=== PATIENT | female | born 1975 | race Caucasian/White ===

== ENCOUNTER 2017-07-28 07:23 | Outpatient (CLI) | payer BC ==
--- NOTE | 2017-07-28 12:13 | CT ---
CT OF THE ABDOMEN AND PELVIS WITHOUT IV CONTRAST: Date: 07/28/17 INDICATION: History of abdominal pain, gastric sleeve procedure, small bowel obstruction, and removal of the sple en, gallbladder, and tail of pancreas. TECHNIQUE: CT of the abdomen and pelvis without IV contrast, but with enteric contrast. COMPARISON: Recent CT examination dated 04/15/17, 08/30/13, and 02/15/08. FINDINGS: Lung bases are clear. There is postsurgical change of gastroplasty, partial pancreatectomy, and cholecystectomy. There is a hypodense mass within the segment 5 of right hepatic lobe measuring 3.1 cm. Adrenal glands appear within normal limits. The spleen is surgically absent. Unopacified kidneys are within normal limits. No enlarged lymph nodes or free fluid evident. There is a fibroid within the ut erus. The bladder, rectum, and perirectal soft tissues are unremarkable. The visualized small and lar ge bowel appear within normal limits. No acute osseous abnormality is evident. There is superior end plate compression abnormality of T11 w hich is stable. There are stable bilateral pars defects at L5. IMPRESSION: 1. New hypodense mass within the right hepatic lobe. Recommend further evaluation with CT of the abd omen utilizing a hemangioma protocol. Since this patient is allergic to IV contrast, preprocedure pily roid prep is recommended. 2. Stable postsurgical change. 3. No additional acute abnormality. POS: [facility]
== END 2017-07-28 07:24 | disposition home or self-care (01) ==
LOC: SCSCT 07:23
PROVIDERS: ATTEND Surgery
DX: R10.12 Left upper quadrant pain (principal); R16.0 Hepatomegaly, not elsewhere classified; Z98.890 Other specified postprocedural states; Z91.041 Radiographic dye allergy status
CPT/HCPCS: 74176

== ENCOUNTER 2017-08-29 13:21 | Outpatient (CLI) | payer BC ==
[~2017-08-29 13:21] MED LIST: Gadobenate Dimeglumine 529 MG/1 ML (20ML VIAL) ONE
--- NOTE | 2017-08-29 16:52 | MRI ---
MRI ABDOMEN WITH AND WITHOUT CONTRAST 08/29/16 HISTORY: Abnormal mass seen on CT examination. COMPARISON: CT 07/28/17. There are also multiple prior examinations from 04/15/17 and 08/30/13. FINDINGS: No significant hepatic steatosis. Hepatic segment is a 7 mm hemangioma. Corresponding to the CT examination is a 2.6 cm x 2.6 cm mass with arterial phase hyperenhancement as well as mild intrinsic T2 signal. This mass does have some signal dropout on the [id number] sequen ce peripherally. There is delayed central enhancement of the central scar which is small and the T2 s ignal can only be seen on the coronal sequence. There are bilateral adnexal cysts. No abnormal marrow signal within the spine. There has been prior gastric surgery along with cholecystectomy and partial pancreatectomy. Prior ventral hernia repair with large volume scar. IMPRESSION: 1. Corresponding to the recent CT finding is an arterial hyperenhancing mass measuring up to 2.6 cm with delayed enhancement of the central scar. There is also some peripheral fat and central scar which is T2 hyperintense on coronal sequence. All these findings are most suggestive of a focal nodul ar hyperplasia. Given this is a new finding, a Followup MRI abdomen in six months/one year is recomme nded. 2. Hepatic segment 7 mm hemangioma. 3. No other abnormality is seen of the liver. POS: [facility]
== END 2017-08-29 13:22 | disposition home or self-care (01) ==
LOC: MRI 13:21
PROVIDERS: ATTEND Surgery
DX: R16.0 Hepatomegaly, not elsewhere classified (principal); K76.89 Other specified diseases of liver; D18.09 Hemangioma of other sites
CPT/HCPCS: 74183; A9579

== ENCOUNTER 2017-11-07 10:56 | Day surgery (SDC) | payer BC ==
[2017-11-06 09:22] VITALS: BMI 36.7
--- NOTE | 2017-11-07 13:58 | OP ---
DATE OF PROCEDURE: 11/06/2017 TITLE PROCEDURE: Esophagogastroduodenoscopy with biopsy. PREPROCEDURE DIAGNOSES: 1. Intractable left upper quadrant abdominal pain. 2. History of sleeve gastrectomy in 03/2017. POSTPROCEDURE DIAGNOSES: 1. Examination to second portion of duodenum. 2. A 3-cm sliding hiatal hernia with mucosal changes of mild distal esophagitis , biopsied. 3. Luminal changes in the stomach consistent with prior sleeve gastrectomy. 4. Normal duodenum. 5. Mild patchy erythema in the gastric body and antrum, nonspecific, biopsied for CLOtest. 6. No evidence of gastric or duodenal ulcer. PROCEDURE IN DETAIL: Written informed consent was obtained. The patient was brought to the endoscopy suite. Total intravenous anesthesia was provided by Dr. Harinder Loco and associates. The patient was placed in the left lateral decubitus position. A bite block was inserted into the mouth. A Pentax video diagnostic gastroscope was introduced into the oral cavity and the esophagus was carefully intubated. The gastroscope was advanced under direct visualization to the second portion of the duodenum. Endoscopic findings revealed a sliding 3-cm hiatal hernia with the Z-line estimated at 33 cm from the incisors. A small erosion was noted along one fold of the distal esophagus and was biopsied. The Z-line was mildly irregular, and biopsies were obtained in the lower esophagus for histology. The stomach was entered and carefully examined. No retroflex exam was done due to her previous gastric surgery. Luminal changes were consistent with a prior sleeve gastrectomy. Mild patchy erythema was noted in the gastric body and antrum, nonspecific. Biopsies were obtained for CLOtest. The duodenum from the bulb to the second portion was then examined and appeared grossly normal. The stomach was decompressed as the endoscope was completely removed from the patient. She was transferred to the day stay surgery area for post-procedure monitoring. There were no immediate complications. RECOMMENDATIONS: 1. Await pathology results. 2. Ask the patient to call me in 1 week for pathology results. 3. Initiate Dexilant 60 mg daily for the next 6 weeks. 4. Follow up in GI clinic in 3-4 weeks. 5. Consider addition of an antispasmodic medication if the patient has no response to the trial of Dexilant. [facility]
[2017-11-07] MEDS ORDERED: Propofol 200 MG/20 ML VIAL ONE (14:37)
== END 2017-11-07 14:35 | disposition home or self-care (01) ==
LOC: SDC 10:56
PROVIDERS: ATTEND Internal Medicine Gastroenterology
PROC: 0DB38ZX Excision of Lower Esophagus, Via Natural or Artificial Opening Endoscopic, Diagnostic (ICD-10-PCS; principal; 2017-11-07)
DX: K22.10 Ulcer of esophagus without bleeding (principal); K44.9 Diaphragmatic hernia without obstruction or gangrene; K76.89 Other specified diseases of liver; I45.81 Long QT syndrome; E78.00 Pure hypercholesterolemia, unspecified; I10 Essential (primary) hypertension; G47.30 Sleep apnea, unspecified; J30.9 Allergic rhinitis, unspecified; Z87.891 Personal history of nicotine dependence; Z98.84 Bariatric surgery status; Z91.041 Radiographic dye allergy status; Z90.411 Acquired partial absence of pancreas; Z98.890 Other specified postprocedural states
CPT/HCPCS: 87081; 88305; 88312; 88313; J2704

== ENCOUNTER 2018-02-14 08:49 | Outpatient (CLI) | payer BC ==
--- NOTE | 2018-02-14 11:29 | ULT ---
THYROID ULTRASOUND: Indication: Enlarged thyroid. Correlation: CT neck, 09-14-12. That exam did reveal an enlarged heterogeneous thyroid with the left l obe being larger than the right with multiple areas of low attenuation and containing numerous thyroi d nodules in both lobes. FINDINGS: Both lobes are enlarged. Right lobe measures 5.7 x 2.2 x 2.6 cm and the left lobe measures 7.1 x 3.8 x 3.4 cm. There is a heterogenous nodule involving the inferior left lobe measuring 4.5 x 3.6 x 4.2 cm. Complex nodule in the isthmus measures 2.3 x 1.4 x 2.1 cm. Complex nodule in the inferior right lobe measures 4.4 x 1.8 x 2.0 cm. Two small nodules in the mid to upper lobe measure approximately 1.0 cm. IMPRESSION: Both lobes of the thyroid enlarged and very heterogenous. The complex nodules involving the inferior aspect of both lobes. Thyroid enlargement with heterogeneity also noted on the CT scan from 2012. POS: [facility]
== END 2018-02-14 08:50 | disposition home or self-care (01) ==
LOC: SCSULT 08:49
PROVIDERS: ATTEND Physician Assistant
DX: E04.9 Nontoxic goiter, unspecified (principal); E04.2 Nontoxic multinodular goiter
CPT/HCPCS: 76536

== ENCOUNTER 2018-02-23 09:47 | Day surgery (SDC) | payer BC, OTHER ==
[2018-02-22 14:16] VITALS: BMI 33.2
[2018-02-23 10:48] VITALS: BP 130/81; TEMP 98.3
--- NOTE | 2018-02-23 11:33 | ULT ---
SONOGRAPHIC GUIDED FNA THYROID NODULE OF TWO SEPARATE MASSES ONE ON THE LEFT AND ONE ON THE RIGHT: History: Bilateral thyroid masses. FINDINGS: After explaining the procedure and answering all questions, sonographic survey found large bilateral thyroid lobe masses. Sterile technique, buffered local anesthesia, sonographic guidance, and a medial approach were used t o carefully advance a 25 gauge needle into a dominant mass, right thyroid lobe. A total of four passe s were made and submitted to pathology for evaluation. Sterile technique, buffered local anesthesia, sonographic guidance, and a medial approach were used t o carefully advance a 25 gauge needle into the dominant heterogeneous complex mass left thyroid lobe. A total of four passes were made and submitted to pathology for evaluation. Post procedure imaging shows no evidence of complication. Patient tolerated the procedure well and wa s dismissed in good condition. IMPRESSION: Technically successful sonographic guided FNA bilateral thyroid lobe masses. Pathology is pending. POS: [facility]
== END 2018-02-23 11:05 | disposition home or self-care (01) ==
LOC: ULT 09:47
PROVIDERS: ATTEND Specialist
PROC: 0GBG3ZX Excision of Left Thyroid Gland Lobe, Percutaneous Approach, Diagnostic (ICD-10-PCS; principal; 2018-02-23)
PROC: 0GBH3ZX Excision of Right Thyroid Gland Lobe, Percutaneous Approach, Diagnostic (ICD-10-PCS; principal; 2018-02-23)
DX: E04.2 Nontoxic multinodular goiter (principal); Z79.899 Other long term (current) drug therapy; Z91.041 Radiographic dye allergy status
CPT/HCPCS: 10022; 76942; 88173

== ENCOUNTER → 2018-05-22 | Day surgery (SDC) | payer BC ==
--- NOTE | 2018-05-22 16:49 | MRI ---
MRI OF THE ABDOMEN WITH AND WITHOUT IV CONTRAST: 05/22/18 INDICATION: Followup liver lesion. INDICATION: History of epigastric abdominal pain. TECHNIQUE: Multiplanar and multisequence MR images were obtained of the abdomen utilizing 20 mL of Multihance. C omparisons are made with prior MRI of the abdomen dated 08/29/[address] dated 07/28/17. FINDINGS: The 7 mm hemangioma within segment of the right hepatic lobe is stable. The 2.6 cm mildly T2 hyperintense, T1 isointense lesion within the central aspect of the right hepati c lobe is not appreciably changed in signal intensity or enhancement characteristics. No new focal hepatic lesion is evident. Postsurgical changes of the upper abdomen is similar consistent with partial pancreatectomy, splenect aziza, cholecystectomy and gastric bypass procedure. IMPRESSION: 1. Stable suspected focal nodule hyperplasia within the central aspect of the right hepatic lobe measuring up to 2.6 cm. 2. Stable segment right hepatic lobe hemangioma measuring 7 mm. POS: [facility]
== END ==
LOC: MRI 11:51 → EDSTATUS 12:00
PROVIDERS: ATTEND Internal Medicine Gastroenterology
DX: D18.03 Hemangioma of intra-abdominal structures (principal); Z79.899 Other long term (current) drug therapy; Z91.041 Radiographic dye allergy status; Z95.810 Presence of automatic (implantable) cardiac defibrillator
CPT/HCPCS: 74183

== ENCOUNTER 2018-12-26 07:30 | Outpatient (CLI) | payer BC ==
--- NOTE | 2018-12-26 08:02 | ULT ---
Soft tissue sonogram anterior abdominal wall HISTORY: Abdominal wall abscess. Worsening purulent discharge. FINDINGS: Sonographic evaluation of the midline anterior abdominal wall in region of palpable concern was performed. An ill-defined heterogeneously predominantly hypoechoic lesion containing some internal vascular flow and correlates with an area of nodularity in the anterior abdominal wall on th e MRI from 05/22/2018. On today's sonogram, is 1.1 cm depth by 1.2 cm width. Extending superiorly and inferiorly from it are more linear areas of heterogeneous echogenicity. Ill-defined peripheral sh adowing. IMPRESSION: The heterogeneous oval and linear echogenic lesion within the anterior abdominal wall kenny ear similar to the area on the 05/22/2018 MRI, allowing for differences in modality. A well-defined fluid pocket is not demonstrated on today's sonogram.
--- NOTE | 2018-12-26 08:41 | ULT ---
US Thyroid STANDARD HISTORY: Thyroid nodules COMPARISON: 02/14/2018 study FINDINGS: Real-time imaging of the right and left lobes of the gland were performed. The right lobe measures 2.2 x 1.9 x 6 cm. Left lobe measures 3.5 x 3 x 8.8 cm. There are numerous bobbi ateral thyroid nodules. On the right side the largest nodule is a complex 1.8 x 2.2 cm lower pole nodule. On the left side the largest nodule is a 3.5 x 4.1 cm lower pole nodule. This is also complex in appe arance. In reviewing the previous examination I do not see a definite significant interval change. IMPRESSION: Stable bilateral thyroid nodules.
--- NOTE | 2018-12-26 08:53 | MMO ---
Bilateral MAMMO Bilat Screen [facility]. CLINICAL HISTORY: Patient is 43 years old and is seen for screening. The patient has no family history of breast cancer. The patient has no personal history of cancer. VIEWS: The views performed were: bilateral craniocaudal with tomosynthesis; bilateral mediolateral oblique with tomosynthesis; and left mediolateral oblique. MAMMOGRAM FINDINGS: There are scattered fibroglandular densities. There are no suspicious masses, suspicious calcifications, or new areas of architectural distortion. IMPRESSION: THERE IS NO MAMMOGRAPHIC EVIDENCE OF MALIGNANCY. A ROUTINE FOLLOW-UP MAMMOGRAM IN 1 YEAR IS RECOMMENDED. THE RESULTS OF THIS EXAM WERE SENT TO THE PATIENT. ACR BI-RADS Category 1 - Negative MAMMOGRAPHY NOTE: 1. A negative mammogram report should not delay a biopsy if a dominant of clinically suspicious mass is present. 2. Approximately 10% to 15% of breast cancers are not detected by mammography. 3. Adenosis and dense breasts may obscure an underlying neoplasm.
== END 2018-12-26 07:31 | disposition home or self-care (01) ==
LOC: BICULT 07:30
PROVIDERS: ATTEND Physician Assistant
DX: Z12.31 Encounter for screening mammogram for malignant neoplasm of breast (principal); E04.2 Nontoxic multinodular goiter; L02.91 Cutaneous abscess, unspecified; R19.8 Other specified symptoms and signs involving the digestive system and abdomen
CPT/HCPCS: 76536; 76705; 77063; 77067

== ENCOUNTER 2019-02-19 12:28 | Day surgery (SDC) | payer BC ==
[2019-02-18 15:43] VITALS: BMI 29.2
[2019-02-19] MEDS ORDERED: Sodium Bicarbonate 2.5 MEQ/5 ML VIAL ONE (12:46)
[2019-02-19] MEDS ORDERED: Lidocaine 1% PF 5 ML VIAL ONE (12:46)
[2019-02-19 13:04] VITALS: BP 143/65; TEMP 98.1
--- NOTE | 2019-02-19 14:28 | ULT ---
US Thyroid Needle Bx History: Thyroid nodule Comparison: Thyroid ultrasound December 26, 2018 Findings: Patient was brought to the ultrasound suite. All questions were answered. Informed consent was obtained. Timeout performed. Patient's neck was prepped and draped in normal sterile fashion. A total of (4) 25-gauge cores were o btained from both dominant right and left lobe of thyroid nodules. Patient tolerated the procedure well without location. Impression: Technically successful ultrasound-guided bilateral thyroid nodule fine needle aspiration.
== END 2019-02-19 14:08 | disposition home or self-care (01) ==
LOC: ULT 12:28
PROVIDERS: ATTEND Otolaryngology Plastic Surgery within the Head & Neck
PROC: 0G9K3ZX Drainage of Thyroid Gland, Percutaneous Approach, Diagnostic (ICD-10-PCS; principal; 2019-02-19)
DX: E04.2 Nontoxic multinodular goiter (principal); J30.9 Allergic rhinitis, unspecified; I10 Essential (primary) hypertension; E78.00 Pure hypercholesterolemia, unspecified; Z87.891 Personal history of nicotine dependence; Z91.041 Radiographic dye allergy status; Z79.899 Other long term (current) drug therapy
CPT/HCPCS: 60100; 76942; 88173; J2001

== ENCOUNTER 2019-07-10 07:19 | Emergency (ER) | payer BC ==
[2019-07-10] MEDS ORDERED: Acetaminophen 500 MG TAB ONE (08:17)
--- NOTE | 2019-07-10 08:35 | RAD ---
PA AND LATERAL VIEWS OF THE CHEST: HISTORY: Chest pain. FINDINGS: Comparison is made with the exam of 04/05/2017. Left-sided pacing device remains in place. The heart size is normal. The lungs are expanded without focal areas of consolidation, pneumothoraces, or pleural effusions. IMPRESSION: No acute process. POS: [facility]
== END 2019-07-10 09:48 | disposition home or self-care (01) ==
LOC: ERS 07:19
DX: J20.9 Acute bronchitis, unspecified (principal); J06.9 Acute upper respiratory infection, unspecified; I10 Essential (primary) hypertension
CPT/HCPCS: 71046; 87804; 94640; J7620

== ENCOUNTER 2019-07-26 07:33 | Outpatient (CLI) | payer BC ==
--- NOTE | 2019-07-26 11:25 | CT ---
CT ABDOMEN WITHOUT IV CONTRAST: Oral contrast was administered. INDICATION: Draining postoperative wound. Draining from incision x 1 month. History of gastric sleeve procedure . History of prior splenectomy and partial pancreectomy and cholecystectomy. COMPARISON: Comparison is made to a prior CT abdomen 07/28/2017. FINDINGS: Lung bases are clear. A low-density focus involving the right lobe of the liver is not well delineated on today's unenhance d study but has been previously described on MRI abdomen as focal nodular hyperplasia. There is no i nterval change. The spleen is surgically absent. Postoperative change is seen involving the stomach consistent with a history of sleeve procedure. In the epigastric region, there is a focal area of increased density in the subcutaneous tissues cons istent with a tract extending to the anterior abdominal wall in the midline which appears to extend t hrough the linea alba and appears to abut the anterior peritoneal surface. There is a loop of bowel along the anterior abdominal wall at this location. This may represent the site of drainage. There does appear to be a fistulous connection to the skin at this site. There is no fluid or abscess lou ection identified. The kidneys appear unremarkable. No hydronephrosis. The visualized small bowel loops are normal caliber. The visualized colon is unremarkable. No intra abdominal fluid collection or abscess. At the level of the umbilicus, there is a focal area of increased density within the subcutaneous tis sues abutting the abdominal wall just inferior to the umbilicus. A similar density was present at th is location on 07/28/2017 and appears to represent a stable finding. IMPRESSION: 1. In the epigastric region in the midline there is evidence of a sinus tract from the skin to the l inea alba and to the anterior peritoneum probably representing the patient's known area of drainage. There is no fluid or abscess collection identified. Loop of bowel does abut this focus and I cannot exclude a fistulous connection. 2. More inferior in the subcutaneous tissues along the anterior abdominal wall just inferior to the umbilicus is a focal area of density which is nonspecific and indeterminate. This was present in 201 7 and is unchanged in appearance. POS: [facility]
== END 2019-07-26 07:34 | disposition home or self-care (01) ==
LOC: BICCT 07:33
PROVIDERS: ATTEND Surgery
DX: T81.89XD Other complications of procedures, not elsewhere classified, subsequent encounter (principal); R93.5 Abnormal findings on diagnostic imaging of other abdominal regions, including retroperitoneum
CPT/HCPCS: 74150

== ENCOUNTER 2019-08-27 08:48 | Outpatient (CLI) | payer BC ==
--- NOTE | 2019-08-27 11:12 | RAD ---
Fluoroscopic fistula study HISTORY: Skin wound with drainage and fistulous connection anterior abdominal wall FINDINGS: Correlated with CT exam from 07/26/2019. FINDINGS: The anterior abdomen involving and around the anterior upper abdomen midline skin defect wa s prepped and draped. Small amount of sterile lidocaine gel was placed within and around the skin defect. A 5 [place] [employer] catheter was carefully teased into the tract at the skin defect. It would only advance approximately 1.5 cm. Isovue contrast was carefully injected through the catheter, revealing a thin linear stranding of con trast, somewhat irregular in shape, extending deep and primarily rightward to the slightest degree. At the deep margin, suspected to approach the outer abdominal wall, the linear tract of contrast abru ptly ended, without a deep reservoir evident. Persistent gentle pressure of contrast was applied. There is no evidence of extension into the abdomi nal cavity. Excess contrast was aspirated and removed. Patient tolerated the procedure well and was dismissed in good condition. IMPRESSION: Thin linear tract extending immediately deep and just to the right of the midline anterio r abdominal wall defect. Estimated at 2 cm length. No evidence of extension into the abdomen. No deep reservoir of contrast/fluid was visualized.
[2019-08-27] MEDS ORDERED: Iopamidol 300 61% 50 ML VIAL FS ONE (16:41)
== END 2019-08-27 08:49 | disposition home or self-care (01) ==
LOC: RAD 08:48
PROVIDERS: ATTEND Surgery
DX: K63.2 Fistula of intestine (principal); R93.3 Abnormal findings on diagnostic imaging of other parts of digestive tract
CPT/HCPCS: 20501; 76080; Q9967

== ENCOUNTER 2019-09-05 06:25 | Outpatient (CLI) | payer BC ==
[2019-09-05 11:12] LABS: #Basophils 0.1 thou/uL (0.0-0.2); #Eosinphils 0.2 thou/uL (0.0-0.7); #Monocytes 0.8 thou/uL (0.11-0.59); #Neutrophils 4.1 thou/uL (1.40-6.50); %Basophils 1.1 % (0.0-1.0); %Eosinophils 2.7 % (0.0-10.0); %Lymphocytes 43.3 % (21.0-51.0); %Monocytes 8.4 % (0.0-10.0); %Neutrophils 44.6 % (42.0-75.0); Hemoglobin 13.8 g/dL (12.0-16.0); Mean Corpuscular HGB CONC 32.8 g/dL (32.0-36.0); Mean Corpuscular Volume 97.5 fL (78.0-98.0); Mean Platelet Volume 7.3 fL (7.4-10.4); Platelet Count 422 thou/uL (130-400); RBC Distribution Width 11.6 % (11.5-14.5); Red Blood Cell (RBC) Count 4.32 mill/uL (4.20-5.40); White Blood Cell (WBC) Count 9.2 thou/uL (4.8-10.8)
[2019-09-05 11:41] LABS: ALT (SGPT) 16 U/L (8-55); AST (SGOT) 20 U/L (5-34); Albumin 3.9 g/dL (3.5-5.0); Alkaline Phosphatase 59 U/L (40-110); Anion Gap 10 mmol/L (10-20); BUN (Urea Nitrogen) 14 mg/dL (7.0-18.7); Calc. Creatinine Clearance 0 mL/min (70-130); Calcium 9.2 mg/dL (7.8-10.44); Carbon Dioxide 30 mmol/L (22-29); Chloride 103 mmol/L (98-107); Estimated GFR-MDRD Greater than 90; Globulin 3.4 g/dL (2.4-3.5); Glucose 79 mg/dL (70-105); Potassium 4.2 mmol/L (3.5-5.1); Protein, Total 7.3 g/dL (6.0-8.3); Sodium 139 mmol/L (136-145)
== END 2019-09-05 06:26 | disposition home or self-care (01) ==
LOC: LABBT 06:25
PROVIDERS: ATTEND Surgery
DX: Z01.818 Encounter for other preprocedural examination (principal); L02.211 Cutaneous abscess of abdominal wall; K63.2 Fistula of intestine
CPT/HCPCS: 80053; 85025; 93005; 93010

== ENCOUNTER 2019-09-06 07:04 | Day surgery (SDC) | payer BC ==
[2019-09-05 09:48] VITALS: BMI 30.7
[2019-09-06] MEDS ORDERED: Midazolam HCl 2 mg/2 ml Vial ONE ×2 (08:51→08:58)
[2019-09-06] MEDS ORDERED: Lidocaine 1% w/Epinephrine 1:100K 20 ML VIAL ONE (08:55)
[2019-09-06] MEDS ORDERED: Bupivacaine PF 0.5% 30 ML VIAL ONE (08:55)
[2019-09-06] MEDS ORDERED: Fentanyl 100 MCG/2 ML VIAL ONE ×2 (08:58→10:10)
[2019-09-06] MEDS ORDERED: Famotidine/PF 20 mg/2ml Vial ONE (09:02)
[2019-09-06] MEDS ORDERED: Scopolamine 1.5 mg/72 hour Patch ONE (09:03)
[2019-09-06] MEDS ORDERED: PROPOFOL 20 ML ONE (09:24)
[2019-09-06] MEDS ORDERED: PROPOFOL 200 MG/20 ML VIAL ONE (12:16)
[2019-09-06] MEDS ORDERED: Lidocaine 1% PF 5 ML VIAL ONE (12:16)
--- NOTE | 2019-09-10 12:15 | OP ---
DATE OF PROCEDURE: 09/06/2019 PREOPERATIVE DIAGNOSIS: Draining sinus of anterior abdominal wall. PROCEDURE PERFORMED: Excisional biopsy. INDICATIONS: This is a 44-year-old female, who has had multiple abdominal surgeries, had a draining sinus that has been I and D in the past, continued. FINDINGS: Suture abscess of fascia. DESCRIPTION OF PROCEDURE: After informed consent was obtained, the patient was taken to the operating room, given general mask anesthesia, placed in the supine position. The abdomen was prepped and draped in usual fashion. Local anesthesia was infiltrated subcutaneously and deep. An elliptical incision was performed to excise the tract, found that it was communicating to a Prolene suture [id number] on the fascia. There was no evidence of fistula. The suture was excised. This was sent to Pathology for further analysis. Hemostasis was achieved with electrocautery. The wound packed open with Betadine gauze, covered by dry gauze, covered by abdominal binder. The patient tolerated the procedure well, transferred to Recovery in good condition. Sponge and needle count verified correct x2. Job ID: [id number]
== END 2019-09-06 12:33 | disposition home or self-care (01) ==
LOC: SDC 07:04 → EEVIPCON 09:15 → SDC 12:33
PROVIDERS: ATTEND Surgery
PROC: 0KCK0ZZ Extirpation of Matter from Right Abdomen Muscle, Open Approach (ICD-10-PCS; principal; 2019-09-06)
DX: L02.211 Cutaneous abscess of abdominal wall (principal); I10 Essential (primary) hypertension; E78.00 Pure hypercholesterolemia, unspecified; Z79.899 Other long term (current) drug therapy; Z87.891 Personal history of nicotine dependence; Z88.8 Allergy status to other drugs, medicaments and biological substances; Z91.041 Radiographic dye allergy status; Z91.048 Other nonmedicinal substance allergy status
CPT/HCPCS: 88305; J0690; J2001; J2250; J2704; J3010; S0020; S0028

== ENCOUNTER 2019-09-13 20:37 | Inpatient (IN) | payer BC ==
[2019-09-13 22:42] LABS: #Basophils 0.1 thou/uL (0.0-0.2); #Eosinphils 0.4 thou/uL (0.0-0.7); #Lymphocytes 5.1 thou/uL (1.20-3.40); #Monocytes 0.8 thou/uL (0.11-0.59); %Basophils 1.1 % (0.0-1.0); %Eosinophils 3.5 % (0.0-10.0); %Lymphocytes 49.3 % (21.0-51.0); %Monocytes 7.6 % (0.0-10.0); %Neutrophils 38.5 % (42.0-75.0); Hemoglobin 12.4 g/dL (12.0-16.0); Mean Corpuscular HGB CONC 32.6 g/dL (32.0-36.0); Mean Corpuscular Hemoglobin 31.3 pg (27.0-31.0); Mean Platelet Volume 7.3 fL (7.4-10.4); Platelet Count 372 thou/uL (130-400); RBC Distribution Width 11.4 % (11.5-14.5); Red Blood Cell (RBC) Count 3.95 mill/uL (4.20-5.40); White Blood Cell (WBC) Count 10.3 thou/uL (4.8-10.8)
[2019-09-13 23:03] LABS: ALT (SGPT) 20 U/L (8-55); AST (SGOT) 27 U/L (5-34); Albumin 3.6 g/dL (3.5-5.0); Alkaline Phosphatase 68 U/L (40-110); Anion Gap 10 mmol/L (10-20); BUN (Urea Nitrogen) 9 mg/dL (7.0-18.7); Bilirubin, Total 0.3 mg/dL (0.2-1.2); Calc. Creatinine Clearance 0 mL/min (70-130); Calcium 8.7 mg/dL (7.8-10.44); Carbon Dioxide 32 mmol/L (22-29); Chloride 103 mmol/L (98-107); Estimated GFR-MDRD 89; Globulin 3.1 g/dL (2.4-3.5); Glucose 105 mg/dL (70-105); Potassium 4.6 mmol/L (3.5-5.1); Protein, Total 6.7 g/dL (6.0-8.3); Sodium 140 mmol/L (136-145)
[2019-09-13] MEDS ORDERED: Piperacillin/Tazobactam 4.5 GM VIAL ONE (23:09)
[2019-09-14] MEDS ORDERED: Ondansetron PF 4 MG/2 ML Vial IVP PRN ×2 (01:18→08:34)
[2019-09-14] MEDS ORDERED: Sodium Chloride 0.9% 1,000 ML IV SCH (01:18)
[2019-09-14] MEDS ORDERED: Ondansetron ODT 4 MG TAB SL PRN (01:18)
[2019-09-14] MEDS ORDERED: Morphine 4 MG/ML VIAL SLOW IVP PRN (01:20)
[2019-09-14] MEDS ORDERED: Piperacillin/Tazobactam 4.5 GM in Sodium Chloride 0.9% 100 ML IVPB SCH (06:00)
[2019-09-14] MEDS ORDERED: Morphine 2 MG/ML SYRINGE SLOW IVP PRN (08:41)
[2019-09-14] MEDS: D5 1/2 NS w/20 mEq KCL 1,000 ML IV SCH ×2 (09:09→18:13)
[2019-09-14] MEDS: Morphine 4 MG/ML VIAL SLOW IVP PRN ×3 (09:10→18:11)
[2019-09-14] MEDS: Pantoprazole 40 MG VIAL IVP SCH (09:11)
[2019-09-14] MEDS: Enoxaparin Sodium 40 MG/0.4 ML SYRINGE SC SCH (09:11)
[2019-09-14] MEDS: Piperacillin/Tazobactam 3.375 GM in Sodium Chloride 0.9% 100 ML IVPB SCH ×3 (12:37→23:29)
[2019-09-14 14:51] VITALS: BMI 31.2
[2019-09-15] MEDS: D5 1/2 NS w/20 mEq KCL 1,000 ML IV SCH ×4 (05:37→23:30)
[2019-09-15] MEDS: Piperacillin/Tazobactam 3.375 GM in Sodium Chloride 0.9% 100 ML IVPB SCH ×4 (05:37→23:29)
[2019-09-15] MEDS: Enoxaparin Sodium 40 MG/0.4 ML SYRINGE SC SCH (08:28)
[2019-09-15] MEDS: Pantoprazole 40 MG VIAL IVP SCH (08:29)
[2019-09-15] MEDS: Morphine 4 MG/ML VIAL SLOW IVP PRN ×2 (09:27→14:38)
--- NOTE | 2019-09-15 11:26 | PRG ---
DATE OF SERVICE: 09/15/2019 SUBJECTIVE: The patient feels pretty good. No nausea or vomiting. Pain is okay. OBJECTIVE: VITAL SIGNS: Temperature 98.2, pulse 63, and blood pressure 125/84. GENERAL: She looks good. The Wound Care Team came, they put a VAC on. They did not see any enteric fluid in the wound. ASSESSMENT: Doing well. PLAN: We will start clear liquids. Arrange home health for the wound VAC. Job ID: [id number]
[2019-09-16] MEDS: Piperacillin/Tazobactam 3.375 GM in Sodium Chloride 0.9% 100 ML IVPB SCH ×4 (05:28→23:41)
--- NOTE | 2019-09-16 07:44 | HP ---
CHIEF COMPLAINT: Draining wound. HISTORY OF PRESENT ILLNESS: The patient is a 44-year-old female one week status post excision of abdominal wall sinus, found to have a Prolene suture as a probable source. She was doing local wound care and yesterday noticed a greenish brown fluid from the wound. She has had some mild nausea, no vomiting. Her bowels are working fine. She is passing flatus. PAST MEDICAL HISTORY: Obesity, long QT syndrome, hypertension, sleep apnea. PAST SURGICAL HISTORY: She had a sleeve gastrectomy in March of 2017. She had a ventral hernia repair in 2011. She has had a cholecystectomy, defibrillator placement with revision, section, deviated septum, tonsils. ALLERGIES: SHE HAS AN ALLERGY TO IV CONTRAST. MEDICATIONS: 1. Lisinopril. 2. Zofran. SOCIAL HISTORY: She is a former smoker. Occasional alcohol. Occasional marijuana. FAMILY HISTORY: Noncontributory. PHYSICAL EXAMINATION: VITAL SIGNS: Temperature 97.6, pulse 63, blood pressure 122/83. GENERAL: She is awake, alert, in no apparent distress. HEENT: No jaundice. LUNGS: Clear. HEART: Regular rate and rhythm. ABDOMEN: Soft. She has about a 3 cm open wound in the epigastrium. The development of good granulation tissue along its ramos in the very base seems like there is a tiny little 3 mm fascial opening. I do not see any enteric fluid on the gauze. There is no definite fistula. EXTREMITIES: Unremarkable. LABORATORY DATA: White count 10.3, H and H 12 and 37, platelet count of 372. Electrolytes are fine. She had a fistulogram done preoperatively that did not show communication to the intestines. 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 PLAN: Local wound care. Bowel rest. Job ID: [id number]
[2019-09-16] MEDS: Enoxaparin Sodium 40 MG/0.4 ML SYRINGE SC SCH (08:25)
[2019-09-16] MEDS: Pantoprazole 40 MG VIAL IVP SCH (08:25)
[2019-09-16] MEDS: D5 1/2 NS w/20 mEq KCL 1,000 ML IV SCH ×2 (08:26→19:49)
--- NOTE | 2019-09-16 12:20 | PRG ---
DATE OF SERVICE: 09/16/2019 SUBJECTIVE: The patient is doing well. She is tolerating clear liquids well. No nausea or vomiting. She had a bowel movement. She is hungry. The drainage on her wound VAC shows no enteric fluid. ASSESSMENT: Doing well. PLAN: Advance diet. Awaiting wound VAC, home when arranged. Job ID: [id number]
[2019-09-17] MEDS: D5 1/2 NS w/20 mEq KCL 1,000 ML IV SCH ×2 (01:27→09:06)
[2019-09-17] MEDS: Piperacillin/Tazobactam 3.375 GM in Sodium Chloride 0.9% 100 ML IVPB SCH (05:20)
[2019-09-17 08:02] VITALS: BP 117/78; TEMP 97.7
[2019-09-17] MEDS: Enoxaparin Sodium 40 MG/0.4 ML SYRINGE SC SCH (09:05)
[2019-09-17] MEDS: Pantoprazole 40 MG VIAL IVP SCH (09:06)
--- NOTE | 2019-09-17 15:12 | DIS ---
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 PROCEDURES DURING ADMISSION: IV antibiotics, wound care. HOSPITAL COURSE: The patient was admitted after she had reports of enteric fluid coming from the wound. This was not noticed at all in the hospital. Wand up, putting a wound VAC on it. Diet was advanced. She is now tolerating a regular diet. There is no enteric fluid draining from the wound. She is discharged home on her usual medication. She will follow up with me in 2 weeks. Job ID: [id number]
--- NOTE | 2019-09-18 04:46 | PQF ---
LILY WHITFIELD JOHN A JR MD [id number] [facility] A- [id number] CLINICAL DOCUMENTATION CLARIFICATION FORM: POST DISCHARGE Addendum to original discharge summary date: ____ Late entry note date: __ DATE: 09/18/2019 ATTN: Unruly Gibson Please exercise your independent, professional judgment in responding to the clarification form. Clinical indicators are provided on the bottom of this form for your review Please check appropriate box(s): [ ] Enterocutaneous Fistula is a postoperative complication [ ] Enterocutaneous Fistula is not a postoperative complication [ ] Other diagnosis [ ] Unable to determine In addition, please specify: Present on Admission (POA): [ ] Yes [ ] No [ ] Unable to determine CLINICAL INDICATORS - SIGNS / SYMPTOMS / LABS H&P p1 09/14 Dr Sykes Pt is one week status post excision of abdominal wall sinus, found to have a Prolene suture as a probable source H&P p1 09/14 Dr Sykes She was doing local wound care and yesterday noticed greenish brown fluid from the wound H&P p1 09/14 Dr Sykes She had some mild nausea RISK FACTORS H&P p1 09/14 Had Sleeve gastrectomy, Cholecystectomy H&P p2 09/14 Enterocutaneous Fistula TREATMENT: H&P p2 09/14 Local wound care H&P p2 09/14 Bowel rest OCT 19 IV Zosyn (This form is maintained as a part of the permanent medical record) 2014 [employer] All Rights Reserved [email or web address]
== END 2019-09-17 11:20 | disposition home or self-care (01) | DRG 395 ==
LOC: ERS 20:37 → SURG A 09-14 01:20
PROVIDERS: ADMIT Surgery; ATTEND Emergency Medicine
DX: K63.2 Fistula of intestine (principal); E66.9 Obesity, unspecified; I10 Essential (primary) hypertension; Z68.31 Body mass index [BMI] 31.0-31.9, adult; Z79.899 Other long term (current) drug therapy; Z90.49 Acquired absence of other specified parts of digestive tract; Z87.891 Personal history of nicotine dependence; Z91.041 Radiographic dye allergy status
CPT/HCPCS: 36415; 80053; 85025; 85652; 86140; 87070; 87077; 87186; 87205; 96365; C9113; J1650; J2270; J2543; J3490

== ENCOUNTER 2020-09-16 16:17 | Emergency (ER) | payer BC ==
[2020-09-16] MEDS ORDERED: HYDROcodone/Acetaminophen 7.5/325 mg Tablet ONE (16:37)
[2020-09-16] MEDS ORDERED: Lidocaine 1% PF 5 ML VIAL ONE (17:30)
[2020-09-16] MEDS ORDERED: Bacitracin 1 PK ONE (18:02)
== END 2020-09-16 18:46 | disposition home or self-care (01) ==
LOC: ERS 16:17
DX: S61.215A Laceration without foreign body of left ring finger without damage to nail, initial encounter (principal); I10 Essential (primary) hypertension; E66.9 Obesity, unspecified; Z87.891 Personal history of nicotine dependence; W01.10XA Fall on same level from slipping, tripping and stumbling with subsequent striking against unspecified object, initial encounter
CPT/HCPCS: 12001

== ENCOUNTER 2022-01-31 06:10 | Emergency (ER) | payer BC ==
[2022-01-31 07:23] LABS: Bacteria/HPF 1+ HPF (None Seen)
[2022-01-31 07:24] LABS: Clarity Cloudy (Clear)
[2022-01-31 07:25] LABS: pH, Urine 6.5 (5.0-9.0)
[2022-01-31 07:28] LABS: Glucose, Urine (Dipstick) Negative (Negative)
[2022-01-31 07:30] LABS: Blood, Urine 1+ (Negative)
[2022-01-31 07:44] LABS: Renal Epithelial 0-3 HPF (None Seen)
[2022-01-31 07:47] LABS: WBC/HPF 21-50 HPF (0-3)
[2022-01-31 08:02] LABS: #Basophils 0.1 thou/uL (0.0-0.2); #Eosinphils 0.2 thou/uL (0.0-0.7); #Lymphocytes 3.5 thou/uL (1.20-3.40); #Monocytes 0.6 thou/uL (0.11-0.59); #Neutrophils 7.6 thou/uL (1.40-6.50); %Basophils 0.7 % (0.0-1.0); %Eosinophils 1.9 % (0.0-10.0); %Monocytes 4.7 % (0.0-10.0); %Neutrophils 63.7 % (42.0-75.0); Mean Corpuscular HGB CONC 32.3 g/dL (32.0-36.0); Mean Corpuscular Hemoglobin 31.4 pg (27.0-31.0); Mean Corpuscular Volume 97.1 fL (78.0-98.0); Mean Platelet Volume 7.2 fL (7.4-10.4); Platelet Count 372 thou/uL (130-400); RBC Distribution Width 11.7 % (11.5-14.5); Red Blood Cell (RBC) Count 4.45 mill/uL (4.20-5.40)
[2022-01-31 08:05] LABS: BHCG - Serum Negative (NEGATIVE); Pregs Control Background? CLEAR/WHITE (CLR/WHITE); Pregs Control Bar Appear? YES (CONTROL BAR)
[2022-01-31] MEDS ORDERED: Metoclopramide HCl 10 MG/2 ML VIAL ONE (08:14)
[2022-01-31 08:21] LABS: ALT (SGPT) 11 U/L (8-55); AST (SGOT) 17 U/L (5-34); Albumin 3.8 g/dL (3.5-5.0); Alkaline Phosphatase 61 U/L (40-110); Anion Gap 12 mmol/L (10-20); BUN (Urea Nitrogen) 10 mg/dL (7.0-18.7); Bilirubin, Total 1.2 mg/dL (0.2-1.2); Calc. Creatinine Clearance 0 mL/min (70-130); Calcium 9.7 mg/dL (7.8-10.44); Carbon Dioxide 28 mmol/L (22-29); Chloride 104 mmol/L (98-107); Globulin 3.7 g/dL (2.4-3.5); Glucose 94 mg/dL (70-105); Lipase 16 U/L (8-78); Potassium 4.2 mmol/L (3.5-5.1); Protein, Total 7.5 g/dL (6.0-8.3); Sodium 140 mmol/L (136-145)
[2022-01-31] MEDS ORDERED: methylPREDNISolone Sod Succ/PF 125 MG/2 ML VIAL ONE (08:24)
[2022-01-31] MEDS ORDERED: diphenhydrAMINE 50 MG/ML VIAL ONE (08:24)
[2022-01-31] MEDS ORDERED: Iopamidol-370 76% 500 ML 1 ML ONE (08:31)
[2022-01-31] MEDS ORDERED: Famotidine 40 MG/4 ML VIAL SLOW IVP SCH (09:15)
[2022-01-31] MEDS ORDERED: Morphine 4 MG/ML VIAL ONE (09:23)
== END 2022-01-31 12:39 | disposition home or self-care (01) ==
LOC: ERS 06:10
DX: N39.0 Urinary tract infection, site not specified (principal); I10 Essential (primary) hypertension; Z87.891 Personal history of nicotine dependence
CPT/HCPCS: 36415; 74177; 80053; 81003; 81015; 83690; 84703; 85025; 96374; 96375; J1200; J2270; J2765; J2930; Q9967

== ENCOUNTER 2022-02-15 13:22 | Outpatient (CLI) | payer BC | END 2022-02-15 13:23 | disposition home or self-care (01) | LOC: BICMAMMO 13:22 | PROVIDERS: ATTEND Physician Assistant | DX: Z12.31 Encounter for screening mammogram for malignant neoplasm of breast (principal) | CPT/HCPCS: 77063; 77067 ==

== ENCOUNTER 2023-10-18 05:52 | Day surgery (SDC) | payer BC ==
[2023-10-17 11:08] VITALS: BMI 36.7
[2023-10-18] MEDS ORDERED: PROPOFOL 80 ML ONE (07:06)
[2023-10-18] MEDS ORDERED: Midazolam HCl 2 mg/2 ml Vial ONE ×2 (07:06→08:36)
[2023-10-18] MEDS ORDERED: Lidocaine 2% PF 5 ML VIAL ONE (08:09)
[2023-10-18] MEDS ORDERED: ePHEDrine Sulfate 50 MG/10 ML VIAL ONE (08:21)
[2023-10-18] MEDS ORDERED: Metoprolol Tartrate 5 MG (5 mL) VIAL ONE (09:24)
== END 2023-10-18 10:15 | disposition home or self-care (01) ==
LOC: SDC 05:52
PROVIDERS: ATTEND Internal Medicine Gastroenterology
PROC: 0DB98ZX Excision of Duodenum, Via Natural or Artificial Opening Endoscopic, Diagnostic (ICD-10-PCS; principal; 2023-10-18)
PROC: 0DB58ZX Excision of Esophagus, Via Natural or Artificial Opening Endoscopic, Diagnostic (ICD-10-PCS; principal; 2023-10-18)
PROC: 0DBN8ZZ Excision of Sigmoid Colon, Via Natural or Artificial Opening Endoscopic (ICD-10-PCS; principal; 2023-10-18)
DX: D12.5 Benign neoplasm of sigmoid colon (principal); K44.9 Diaphragmatic hernia without obstruction or gangrene; K22.10 Ulcer of esophagus without bleeding; K21.00 Gastro-esophageal reflux disease with esophagitis, without bleeding; E03.9 Hypothyroidism, unspecified; E78.00 Pure hypercholesterolemia, unspecified; Z91.041 Radiographic dye allergy status; Z91.09 Other allergy status, other than to drugs and biological substances; Z87.891 Personal history of nicotine dependence; Z91.048 Other nonmedicinal substance allergy status
CPT/HCPCS: 88305; 93005; 93010; J2001; J2250; J2704

== ENCOUNTER 2023-10-19 08:49 | Outpatient (CLI) | payer BC | END 2023-10-19 08:50 | disposition home or self-care (01) | LOC: MRI 08:49 | PROVIDERS: ATTEND Physician Assistant Medical | DX: Z12.11 Encounter for screening for malignant neoplasm of colon (principal); K21.9 Gastro-esophageal reflux disease without esophagitis; K76.89 Other specified diseases of liver; I45.81 Long QT syndrome; R14.2 Eructation; R10.12 Left upper quadrant pain; R14.0 Abdominal distension (gaseous); D18.03 Hemangioma of intra-abdominal structures; Z90.3 Acquired absence of stomach [part of]; Z87.19 Personal history of other diseases of the digestive system | CPT/HCPCS: 71046; 74183 ==

== ENCOUNTER 2024-01-10 06:47 | Outpatient (CLI) | payer BC | END 2024-01-10 06:48 | disposition home or self-care (01) | LOC: RAD 06:47 | PROVIDERS: ATTEND Orthopaedic Surgery | DX: M54.12 Radiculopathy, cervical region (principal); Z95.0 Presence of cardiac pacemaker | CPT/HCPCS: 71046 ==

== ENCOUNTER 2024-01-10 07:33 | Outpatient (CLI) | payer BC | END 2024-01-10 07:34 | disposition home or self-care (01) | LOC: MRI 07:33 | DX: M50.11 Cervical disc disorder with radiculopathy, high cervical region (principal); M50.121 Cervical disc disorder at C4-C5 level with radiculopathy; M50.122 Cervical disc disorder at C5-C6 level with radiculopathy; M50.123 Cervical disc disorder at C6-C7 level with radiculopathy | CPT/HCPCS: 72141 ==

== ENCOUNTER 2024-08-30 16:15 | Emergency (ER) | payer OTHER, BC ==
[2024-08-30] MEDS ORDERED: Bacitracin 1 PK ONE (16:47)
[2024-08-30] MEDS ORDERED: Ondansetron PF 4 MG/2 ML Vial ONE ×2 (16:48→18:19)
[2024-08-30] MEDS ORDERED: Ketorolac Tromethamine 30 MG (1 mL) VIAL ONE (16:48)
== END 2024-08-30 19:14 | disposition home or self-care (01) ==
LOC: ERS 16:15
DX: S51.012A Laceration without foreign body of left elbow, initial encounter (principal); M25.512 Pain in left shoulder; M25.511 Pain in right shoulder; I10 Essential (primary) hypertension; Z87.891 Personal history of nicotine dependence; W10.9XXA Fall (on) (from) unspecified stairs and steps, initial encounter
CPT/HCPCS: 70450; 72125; 96374; 96375; 96376; J1885; J2405